=== PATIENT | female | born 1955 | race Caucasian/White ===

== ENCOUNTER 2020-06-05 09:09 | Outpatient (REF) | payer MEDICARE, SELFPAY ==
[2020-06-05 12:37] LABS: Alanine Aminotransferase 29 U/L (0-31); Albumin Level 4.4 g/dL (3.5-5.0); Alkaline Phosphatase 75 U/L (39-117); Anion Gap 14 (12-20); Aspartate Amino Transferase 20 U/L (5-31); Bilirubin Direct 0.4 mg/dL (0.0-0.5); Blood Urea Nitrogen 17 mg/dL (9-16); Calcium 9.5 mg/dL (8.4-10.2); Carbon Dioxide 26 mmol/L (22-29); Chloride 105 mmol/L (96-108); Cholesterol 186 mg/dL; Estimated Glomerular Filt Rate > 60; Glucose Fasting 96 mg/dL (60-99); HDL Cholesterol 46 mg/dL; LDL Cholesterol Calculated 111 mg/dl; Potassium 4.4 mmol/l (3.3-5.1); Sodium 141 mmol/L (135-145); Total Protein 7.2 g/dL (6.5-8.0); Triglycerides 147 mg/dL
== END 2020-06-05 09:10 | disposition home or self-care (01) ==
LOC: HO.HMGCLDS 09:09
PROVIDERS: PCP Internal Medicine; Visit Provider Internal Medicine
DX: E78.9 Disorder of lipoprotein metabolism, unspecified (principal); E04.1 Nontoxic single thyroid nodule
CPT/HCPCS: 36415; 80048; 80061; 80076; 84443

== ENCOUNTER 2021-03-19 08:41 | Outpatient (REF) | payer MEDICARE, SELFPAY ==
--- NOTE | ~2021-03-19 | XR_ITS ---
EXAMINATION: XR LUMBOSACRAL SPINE CLINICAL INFORMATION: Low back pain COMPARISON: Previous lumbar spine x-ray March 2016 TECHNIQUE: Three views of the lumbosacral spine. FINDINGS: There is curvature of the lower lumbar spine to the left. Bone alignment is otherwise normal. There is multilevel degenerative disc disease greatest at L3-L4, L4-L5 and L5-S1. There is lower lumbar spine facet arthritis. There is evidence of atherosclerotic disease. XR/XR lumbar spine 2-3V IMPRESSION: Scoliosis and multilevel degenerative changes. Findings are similar to March 2016 exam.
[2021-03-19 11:25] LABS: MANUAL DIFF FLAG NO
[2021-03-19 11:31] LABS: Basophils Absolute Auto 0.1 X10*3/uL (0.0-0.2); Basophils Percent Auto 0.9 % (0-2); Eosinophils Absolute Auto 0.3 X10*3/uL (0.0-0.4); Eosinophils Percent Auto 3.4 % (0-4); Hematocrit 40.7 % (37-47); Hemoglobin 13.2 g/dl (12.0-16.0); Imm Gran Abs Auto 0.02 X10*3/uL (0.00-0.03); Imm Gran Pct Auto 0.3 % (0.0-0.4); Lymphocytes Absolute Auto 2.7 X10*3/uL (1.2-4.9); Lymphocytes Percent Auto 33.8 % (20-40); Mean Corpuscular HGB Conc 32.4 g/dl (31.0-35.0); Mean Corpuscular Hemoglobin 30.3 pg (27.0-33.0); Mean Corpuscular Volume 93.3 fL (80-98); Monocytes Absolute Auto 0.7 X10*3/uL (0.1-1.2); Monocytes Percent Auto 8.7 % (2-11); Neutrophils Absolute Auto 4.2 X10*3/uL (2.0-8.3); Neutrophils Percent Auto 52.9 % (45-73); Platelet Count 341 X10*3/uL (160-400); Red Blood Count 4.36 X10*6/uL (4.20-5.50); Red Cell Distribution Width 12.8 % (11.0-16.0); White Blood Count 7.9 X10*3/uL (4.8-10.8)
[2021-03-19 11:46] LABS: Alanine Aminotransferase 26 U/L (0-31); Albumin Level 4.3 g/dL (3.5-5.0); Alkaline Phosphatase 72 U/L (39-117); Anion Gap 14 (12-20); Aspartate Amino Transferase 21 U/L (5-31); Bilirubin Total 1.2 mg/dL (0.0-1.0); Blood Urea Nitrogen 15 mg/dL (9-16); Calcium 9.9 mg/dL (8.4-10.2); Carbon Dioxide 25 mmol/L (22-29); Chloride 106 mmol/L (96-108); Cholesterol 185 mg/dL; Estimated Glomerular Filt Rate > 60; Glucose Fasting 91 mg/dL (60-99); HDL Cholesterol 43 mg/dL; LDL Cholesterol Calculated 116 mg/dl; Potassium 4.1 mmol/L (3.3-5.1); Sodium 141 mmol/L (135-145); Total Protein 7.1 g/dL (6.5-8.0); Triglycerides 130 mg/dL
[2021-03-19 12:10] LABS: TSH reflex Free T4 1.53 uIU/mL (0.32-4.0)
== END 2021-03-19 08:42 | disposition home or self-care (01) ==
LOC: HO.HMGCX 08:41
PROVIDERS: PCP Internal Medicine; Visit Provider Internal Medicine
DX: M54.50 Low back pain, unspecified (principal); E04.1 Nontoxic single thyroid nodule; E78.9 Disorder of lipoprotein metabolism, unspecified
CPT/HCPCS: 36415; 72100; 80053; 80061; 84443; 85025

== ENCOUNTER 2021-10-01 09:07 | Outpatient (REF) | payer MEDICARE, SELFPAY ==
[2021-10-01 11:42] LABS: Alanine Aminotransferase 28 U/L (0-31); Albumin Level 4.4 g/dL (3.5-5.0); Alkaline Phosphatase 68 U/L (39-117); Anion Gap 12 (12-20); Aspartate Amino Transferase 23 U/L (5-31); Bilirubin Total 1.2 mg/dL (0.0-1.0); Blood Urea Nitrogen 21 mg/dL (9-16); Calcium 10.4 mg/dL (8.4-10.2); Carbon Dioxide 25 mmol/L (22-29); Chloride 106 mmol/L (96-108); Cholesterol 191 mg/dL; Estimated Glomerular Filt Rate > 60; Glucose Fasting 107 mg/dL (60-99); HDL Cholesterol 42 mg/dL; LDL Cholesterol Calculated 130 mg/dl; Potassium 4.3 mmol/L (3.3-5.1); Sodium 139 mmol/L (135-145); Total Protein 7.4 g/dL (6.5-8.0); Triglycerides 98 mg/dL
== END 2021-10-01 09:08 | disposition home or self-care (01) ==
LOC: HO.HMGCLDS 09:07
PROVIDERS: PCP Internal Medicine; Visit Provider Internal Medicine
DX: E78.9 Disorder of lipoprotein metabolism, unspecified (principal)
CPT/HCPCS: 36415; 80053; 80061

== ENCOUNTER → 2021-12-06 08:08 | Outpatient (REF) | payer MEDICARE, SELFPAY ==
--- NOTE | 2021-12-06 08:10 | CA_ITS ---
Transthoracic Echocardiogram Patient (Last, First, Middle): Penny Iraheta F Gender: Female Date of : 1955 Age: 66 Procedure Date: 12/06/2021 Procedure Type: Transthoracic Echocardiogram Location: OP Height: 160.02 cm Weight: 87.09 kg BSA: 1.90 m2 Heart Rate: bpm Gear Milling Machine Set Up Operator: TO/VH Referring MD: Maisha Delcid MD Project Financial Analyst: Adam Castro MD Symptoms: R06.02 - Shortness of breath Study Quality: Fair/Contrast ECG Rhythm: Sinus Conclusions: - 1. Normal LV systolic function with grade 1 diastolic dysfunction 2. Normal cardiac valvular Doppler 3. Normal RV systolic pressure 4. No gross pericardial effusion Findings Procedure Information Contrast agent, definity, is being given per protocol without apparent complications. Left Ventricle Normal left ventricular size, thickness, and systolic function. The visually estimated ejection fraction is between 55-60%. Spectral Doppler is indicative of an impaired relaxation filling pattern. E/E prime ratio is <8, consistent with normal filling pressures. Evidence suggests grade I (mild) diastolic dysfunction. Right Ventricle The right ventricle was not well visualized. There is normal right ventricular systolic function. Atria The left atrium is normal in size. There is no evidence of interatrial shunt. The right atrium is normal in size. Aortic Valve The aortic valve structure and function is likely normal. There is no aortic valve stenosis. There is no aortic valve regurgitation. Mitral Valve Normal mitral valve structure and function. There is trace mitral valve regurgitation. There is no mitral valve stenosis. Pulmonic Valve The pulmonic valve was not well visualized. Tricuspid Valve Likely normal tricuspid valve structure and function. There is trace tricuspid valve regurgitation. The right ventricular systolic pressure is normal. Normal right atrial pressure. There is no evidence of pulmonary hypertension. Great Vessels All visible segments of the aorta are normal in size. The pulmonary artery was not well visualized. Venous The inferior vena cava is normal in size and collapses greater than 50% with inspiration. Pericardium/Pleural There is no evidence of pericardial effusion. Prior Study Comparison No prior study available for comparison. Measurements 2D Linear Measurements IVSd: 1.18 0.6-0.9/0.6-1.0 cm LVIDd: 4.69 3.9-5.3/4.2-5.9 cm LVIDd Index: 2.47 2.4-3.2/2.2-3.1 cm/m2 LVIDs: 3.02 2.0-3.6 cm LVPWd: 0.99 0.7-1.1 cm LA Diam: 3.50 2.7-3.8/3.0-4.0 cm LAIDs Index: 1.84 1.5-2.3 cm/m2 LV Mass: 228.60 67-162/88-224 g LV Mass Index: 120.32 43-95/49-115 g/m2 LVOT Diam: 2.30 3.0+(-)1.3 cm 2D Systolic Function EF 4C: 52.00 >55% EF 2C: 57.50 >55% EF BiP: 55.40 >55% Mitral Valve MV Pk E: 0.80 MV PK A: 0.70 MV Decel Time: 123.00 E/A: 1.10 E'Lateral: 10.90 E'Medial: 5.77 E/E' Med: 13.90 E/E' Lat: 7.30 PHT: 36.00 MVA PHT: 6.11 Decel Oliver: 6.49 Aortic Valve AoV Pk Jairo: 1.21 AoV Mn Jairo: 0.85 AoV VTI: 0.28 AoV Pk Grad: 6.00 Aov Mn Grad: 3.00 KAM Cont.VTI: 2.57 LVOT LVOT Pk Jairo: 0.75 LVOT Mn Jairo: 0.54 LVOT VTI: 0.17 LVOT Pk Grad: 2.00 LVOT Mn Grad: 1.00 LVOT Diam: 2.30 LVOT Area: 4.15 Diastolic Function MV Pk E: 0.80 MV Pk A: 0.70 E/A: 1.10 E'Medial: 5.77 E/E' Med: 13.90 E' Laterial: 10.90 E/E' Lat: 7.30 Right Ventricle TAPSE (mm): 25.70 TVS' Jairo: 12.00 Tricuspid Valve TR Pk Jairo: 2.54 TR Pk Grad: 26.00 RA Press: 3.00 RVSP: 29.00 Great Vessels Aorta Sinus of Valsalva: 3.85 2.0-3.[address] [place]: 2.64 1.7-3.4 cm Ao Asc: 3.50 2.1-3.4 cm Updated in Other Vendor System with Status of Final Adam Castro MD electronically signed on 12/06/2021 12:18:11 PM with status of Final
--- NOTE | 2021-12-06 08:13 | ECG_ITS ---
Test Reason : sob Blood Pressure : / mmHG Vent. Rate : 072 BPM Atrial Rate : 072 BPM P-R Int : 176 ms QRS Dur : 084 ms QT Int : 376 ms P-R-T Axes : 011 -08 008 degrees QTc Int : 411 ms Normal sinus rhythm Normal ECG No previous ECGs available Referred By: Maisha Delcid Electronically Signed By:Avila Hickey
== END ==
LOC: HO.CARD 08:08
PROVIDERS: PCP Internal Medicine; Visit Provider Internal Medicine
DX: R06.02 Shortness of breath (principal); R00.2 Palpitations; E78.9 Disorder of lipoprotein metabolism, unspecified
CPT/HCPCS: 93005; 93306; Q9957

== ENCOUNTER 2021-12-09 07:41 | Outpatient (REF) | payer MEDICARE, SELFPAY | END 2021-12-09 07:42 | disposition home or self-care (01) | LOC: HO.RESP 07:41 | PROVIDERS: Visit Provider Internal Medicine | DX: R06.02 Shortness of breath (principal) | CPT/HCPCS: 94060; 94727; 94729 ==

== ENCOUNTER 2021-12-09 12:20 | Outpatient (REF) | payer MEDICARE, SELFPAY ==
--- NOTE | 2021-12-09 13:02 | PFT_ITS ---
INDICATION: Shortness of breath. SPIROMETRY: FEV1 to FVC of 89% with an FEV1 of 2.21 L, which is 98% predicted, an FVC of 2.48 L, which is 84% predicted. No significant response to bronchodilators noted. LUNG VOLUMES: Total lung capacity 81% predicted with an expiratory reserve volume of 18% predicted. DIFFUSION CAPACITY: DLCO 62% predicted. COMPARISONS: None. INTERPRETATION: No obstructive nor restrictive ventilatory defects identified. No significant response to bronchodilators noted. Normal maximum voluntary ventilation. Lung volumes demonstrate a low normal total lung capacity and a significantly decreased expiratory reserve volume secondary to elevated BMI. Cannot rule out occult interstitial lung conditions. In addition to that, the patient does have a mild diffusion impairment that does not correct to normal when correcting for the alveolar volume. Therefore, intrinsic lung condition should be considered. Clinical correlation warranted. MD KOLE Mooney/NEGRO / [id number]
== END 2021-12-09 12:21 | disposition home or self-care (01) ==
LOC: HO.RESP 12:20
PROVIDERS: PCP Internal Medicine; Visit Provider Internal Medicine
DX: R06.02 Shortness of breath (principal)
CPT/HCPCS: 94060; 94727; 94729

== ENCOUNTER 2022-01-06 09:44 | Outpatient (REF) | payer MEDICARE, SELFPAY ==
--- NOTE | ~2022-01-06 | XR_ITS ---
EXAMINATION: XR CHEST CLINICAL INFORMATION: R06.09 - Other forms of dyspnea COMPARISON: None TECHNIQUE: 2 views of the chest were obtained. FINDINGS: Lungs are clear. There is no hyperinflation, groundglass opacity, interstitial thickening, or effusion. The costophrenic sulci are clear. The heart is normal in size. Vascularity normal. The hilar and mediastinal contours normal. There are mild multilevel degenerative changes thoracic spine and mild dextrocurvature. XR/XR chest 2V IMPRESSION: Unremarkable examination.
== END 2022-01-06 09:45 | disposition home or self-care (01) ==
LOC: HO.XRAY 09:44
PROVIDERS: PCP Internal Medicine; Visit Provider Internal Medicine
DX: R06.09 Other forms of dyspnea (principal)
CPT/HCPCS: 71046; 99202

== ENCOUNTER 2022-10-05 09:33 | Outpatient (REF) | payer MEDICARE, SELFPAY ==
[2022-10-05 12:18] LABS: Estimated Average Glucose 108 mg/dL; Hemoglobin A1c % 5.4 %
[2022-10-05 12:53] LABS: Alanine Aminotransferase 24 U/L (0-31); Albumin Level 4.3 g/dL (3.5-5.0); Alkaline Phosphatase 62 U/L (39-117); Anion Gap 12 (12-20); Aspartate Amino Transferase 21 U/L (5-31); Bilirubin Total 1.4 mg/dL (0.0-1.0); Blood Urea Nitrogen 15 mg/dL (9-16); Calcium 9.5 mg/dL (8.4-10.2); Carbon Dioxide 26 mmol/L (22-29); Chloride 108 mmol/L (96-108); Estimated Glomerular Filt Rate > 60; Glucose Fasting 98 mg/dL (60-99); Potassium 4.8 mmol/L (3.3-5.1); Sodium 141 mmol/L (135-145)
[2022-10-05 13:22] LABS: TSH reflex Free T4 1.13 uIU/mL (0.32-4.0)
[2022-10-07 08:39] LABS: LDL Cholesterol Direct 103 mg/dL (<100)
== END 2022-10-05 09:34 | disposition home or self-care (01) ==
LOC: HO.HMGCLDS 09:33
PROVIDERS: PCP Internal Medicine; Visit Provider Internal Medicine
DX: E04.1 Nontoxic single thyroid nodule (principal); E83.52 Hypercalcemia; E66.09 Other obesity due to excess calories; E78.9 Disorder of lipoprotein metabolism, unspecified; R06.02 Shortness of breath; R73.01 Impaired fasting glucose
CPT/HCPCS: 36415; 80053; 83036; 83721; 84443

== ENCOUNTER 2023-04-07 09:20 | Outpatient (REF) | payer MEDICARE, SELFPAY ==
[2023-04-07 11:26] LABS: MANUAL DIFF FLAG NO
[2023-04-07 11:43] LABS: Basophils Absolute Auto 0.1 X10*3/uL (0.0-0.2); Basophils Percent Auto 1.4 % (0-2); Eosinophils Absolute Auto 0.2 X10*3/uL (0.0-0.4); Eosinophils Percent Auto 2.8 % (0-4); Hematocrit 39.7 % (37.0-47.0); Hemoglobin 13.2 g/dl (12.0-16.0); Imm Gran Abs Auto 0.02 X10*3/uL (0.00-0.03); Imm Gran Pct Auto 0.3 % (0.0-0.4); Lymphocytes Absolute Auto 2.1 X10*3/uL (1.2-4.9); Mean Corpuscular HGB Conc 33.2 g/dl (31.0-35.0); Mean Corpuscular Hemoglobin 31.1 pg (27.0-33.0); Mean Corpuscular Volume 93.4 fL (80.0-98.0); Mean Platelet Volume 9.9 fL (9.4-12.3); Monocytes Absolute Auto 0.5 X10*3/uL (0.1-1.2); Monocytes Percent Auto 8.2 % (2-11); Neutrophils Absolute Auto 3.4 x10*3/uL (2.0-8.3); Neutrophils Percent Auto 54.3 % (45-73); Platelet Count 332 X10*3/uL (160-400); Red Blood Count 4.25 X10*6/uL (4.20-5.50); Red Cell Distribution Width 13.2 % (11.0-16.0); White Blood Count 6.3 X10*3/uL (4.8-10.8)
[2023-04-07 12:07] LABS: Estimated Average Glucose 111 mg/dL; Hemoglobin A1c % 5.5 % (<6.0)
[2023-04-07 12:19] LABS: Alanine Aminotransferase 22 U/L (0-31); Albumin Level 4.3 g/dL (3.5-5.0); Alkaline Phosphatase 57 U/L (39-117); Anion Gap 10 (12-20); Aspartate Amino Transferase 24 U/L (5-31); Bilirubin Total 1.3 mg/dL (0.0-1.0); Blood Urea Nitrogen 18 mg/dL (9-16); Calcium 9.2 mg/dL (8.4-10.2); Carbon Dioxide 27 mmol/L (22-29); Chloride 107 mmol/L (96-108); Cholesterol 163 mg/dL (<200); Estimated Glomerular Filt Rate > 60; Glucose Fasting 101 mg/dL (60-99); HDL Cholesterol 49 mg/dL (>40); LDL Cholesterol Calculated 97 mg/dL (<100); Potassium 4.1 mmol/L (3.3-5.1); Sodium 140 mmol/L (135-145); Total Protein 7.2 g/dL (6.5-8.0); Triglycerides 87 mg/dL (<150)
== END 2023-04-07 09:21 | disposition home or self-care (01) ==
LOC: HO.HMGCLDS 09:20
PROVIDERS: PCP Internal Medicine; Visit Provider Internal Medicine
DX: R73.01 Impaired fasting glucose (principal); E78.9 Disorder of lipoprotein metabolism, unspecified
CPT/HCPCS: 36415; 80053; 80061; 83036; 85025

== ENCOUNTER 2023-10-11 08:53 | Outpatient (AMB) | payer MEDICARE, SELFPAY ==
[2023-10-11 08:54] VITALS: BP 138/92; PULSE 74; O2SAT 94; BMI 32.4
--- NOTE | 2023-10-11 08:54 | A.OFFVIS_ITS ---
Intake Vital Signs 10/11/23 08:54 Height 5 ft 4 in Weight 188 lb 8 oz BMI 32.4 BP 138/92 H Blood Pressure Location Lt brachial Position Sitting Pulse 74 Pulse Source Pulse Oximeter Pulse Oximetry (%) 94 Oxygen Delivery Method Room Air Intake Visit Reasons: SWV Allergies nystatin Allergy (Severe, Verified 10/11/23 08:57) rash Medication List - Last Reconciled 10/11/23 by Maisha Delcid MD atorvastatin 40 mg PO DAILY 90 days Do you need a note to return to daycare/school/sports/work: No HPI SWV HPI Details Patient is 68-year-old female came in today for Medicare wellness visit and regular follow-up Blood pressure is elevated today at 138/92, I would recommend that she start monitoring blood pressure at home Patient also have impaired fasting sugar, lab order placed Patient is exercising and trying to lose weight, BMI is elevated HPI Comments History of Present Illness Details AWV Medical/social history reviewed Past medical history reviewed [place] of care / care team list updated Surgical/ hospitalization history reviewed Current medications including OTC and supplements reviewed Family history reviewed Tobacco controlled form updated Alcohol use form updated Illicit drug use in social history reviewed Current diagnosis of depression ?screening updated Appropriate PHQ 2/PHQ-9 completed . Vital signs reviewed Alcohol tobacco drug use reviewed and discussed . MMSE completed . ? Fall risk: ?Assessed Fall history: ?None Have you had any falls with injury in the past year?? No Have you had 2 or more falls in the past year?? No Fall risk assessment completed Home safety discussed with the patient Functional ability assessed and discussed and documented Activities of daily living reviewed and appropriate actions taken . HRA filled out by the patient and reviewed by provider and scanned . Appropriate written screening schedule established . Any health advise needed provided . Advance care planning discussed with the patient , necessary paperwork filled Examination IPPE/AWE: Balance intact Romberg intact Tandem walk Failed walk-in turn intact rise from sit to stand intact . ?Hearing ?whisper test pass . Medication list reviewed, patient is stable on medications All other providers patient is seeing discussed and noted . [facility] Medical History Dyspnea on exertion Thyroid nodule History of breast cancer Family History Father No problems noted. Mother Breast cancer Sister No problems noted. Son No problems noted. Son No problems noted. Sister Ford's palsy Brother Poor circulation Brother No problems noted. Brother No problems noted. Brother No problems noted. Brother No problems noted. Brother No problems noted. Sister No problems noted. Sister No problems noted. Sister No problems noted. Social History Housing: House Patient Tobacco Use Status: Never used Tobacco e-Cigarette/Vaping Use: Never Used Second Hand Smoke Exposure: No service: No Current occupational status: retired Cognitive needs: No Hearing needs: No Vision needs: No Questionnaire Medicare Wellness Checkup What [age]?: 65-68 What gender do you identify with?: female During the past 4 weeks, how much have you been bothered by emotional problems such as feeling anxious, depressed, irritable, sad or downhearted, and blue?: slightly During the past 4 weeks, has your physical & emotional health limited your social activities with family, friends, neighbors, or groups?: not at all During the past 4 weeks, how much bodily pain have you generally had?: mild pain During the past 4 weeks, was someone available to help you if you needed & wanted help?: yes, as much as I wanted During the past 4 weeks, what was the hardest physical activity you could do for at least 2 minutes?: heavy Can you get to places out of walking distance without help? (For eg., can you travel alone on buses, taxis or drive your car?): Yes Can you go shopping for groceries or clothes without someone's help?: Yes Can you prepare your own meals?: Yes Can you do your housework without help?: Yes Because of any health problems, do you need the help of another person with your personal care needs such as eating, bathing, dressing or getting around the house?: No Can you handle your own money without help?: Yes During the past 4 weeks, how would you rate your health in general?: excellent During the past 4 weeks how have things been going for you?: pretty well Are you having difficulties driving your car?: no Do you always fasten your seat belt when you are in a car?: yes, usually During past 4 weeks, have you been bothered by the following: never: Falling or dizzy when standing up, Sexual problems?, Trouble eating well?, Teeth or denture problems? and Problems using the telephone? and sometimes: Tiredness or fatigue? Have you fallen 2 or more times in the past year?: No Are you afraid of falling?: No Are you a smoker?: no During the past 4 weeks, how many drinks of wine, beer, or other alcoholic beverages did you have?: 6-9 drinks per week Do you exercise for about 20 minutes 3 or more times a week?: yes, most of the time Have you been given information to help with the following?: no: Hazards in your house that might hurt you? and no: Keeping track of your medications? How often do you have trouble taking medicines the way you have been told to take them?: I always take medicine as prescribed How confident are you that you can control & manage most of your health problems?: very confident What is your race?: White Mini Mental State Exam (MMSE) Orientation What is the (year) (season) (date) (day) (month)?: year, season, date, day and month Where are we (state) (county) (town or city) (hospital) (floor)?: state, county, town or city, hospital/clinic and floor Score Score: 10 Activity of Daily Living Bathing - sponge bath, tub bath or shower: receives no assistance (gets in/out by self, if usual bathing means Dressing - getting clothes from closets & drawers, including inner/outer garments & fasteners.: gets clothes & gets completely dressed without help Toileting - going to the 'toilet room' for urine/bowel elimination & cleaning self/arranging clothes: goes to toilet room, cleans self, arranges clothes without help Transfer: moves in & out of bed and chair without help (may use support object) Continence: controls urination/bowel movements completely by self Feeding: feeds self without help Total Score: 0 Information obtained from: patient Using telephone: independent Traveling: independent Shopping: independent Preparing meals: independent Housework: independent Taking medicine: independent Managing money: independent PHQ-9 Over the last 2 weeks, how often have you been bothered by any of the following problems? 1. Little interest or pleasure in doing things: several days 2. Feeling down, depressed, or hopeless: several days 3. Trouble falling or staying asleep, or sleeping too much: more than half the days 4. Feeling tired or having little energy: several days 5. Poor appetite or overeating: several days 6. Feeling bad about yourself - or that you are a failure or have let yourself or your family down: not at all 7. Trouble concentrating on things, such as reading the newspaper or watching television: not at all 8. Moving or speaking so slowly that other people could have noticed. Or the opposite - being so fidgety or restless that you have been moving around a lot more than usual: not at all 9. Thoughts that you would be better off or of hurting yourself in some way: not at all Total score: 6 Depression Screening Interpretation: Negative Depression Screening Done: Yes 91649 - PHQ-9 Billing: Yes Source: Developed by Drs. Terrence Willis, Phoebe Hernández, Puma Kumar and colleagues, with an educational harvinder from [employer]. Review of Systems Const Denies chills and Denies fever(s) ENT Denies epistaxis and Denies nasal discharge Card Denies chest pain Resp Denies chest congestion, Denies cough and Denies hemoptysis GI Denies diarrhea and Denies nausea Skin/Breast Denies rash Neuro Reports no additional complaints Psych Reports no additional complaints Endo Reports no additional complaints Physical Exam Vital Signs: Last Vital Signs Pulse 74 10/11/23 08:54 BP 138/92 H 10/11/23 08:54 Pulse Ox 94 10/11/23 08:54 Oxygen Delivery Method Room Air 10/11/23 08:54 BMI result Body Mass Index 32.4 Const General: cooperative, comfortable and no acute distress Orientation/consciousness: patient oriented x3 HEENT Head: Yes normocephalic Eyes General: appearance normal, both eyes and all related structures Neck Other: Supple Neck: Yes supple Resp Effort & Inspection: normal respiratory effort, no cough and no stridor Cardio Rhythm: regular rhythm Heart sounds: S1 normal heart sound present and S2 normal heart sound present Skin General skin exam: turgor normal Neuro Other: Motor sensory intact General: patient oriented x3, tone normal and moves all extremities Extrem Other: No lower extremity swelling. Right lower extremity: no edema Left lower extremity: no edema Psych Other: Normal effect, speech clear Assessment & Plan Assessment & Plan (1) Medicare annual wellness visit, subsequent: Code(s): Z00.00 - Encounter for general adult medical examination without abnormal findings (2) Lipid disorder: Code(s): E78.9 - Disorder of lipoprotein metabolism, unspecified (3) Obesity due to excess calories: Code(s): E66.09 - Other obesity due to excess calories Qualifiers: Body mass index: BMI 32.0-32.9 Obesity classification: adult class 1 (BMI 30 - 34.9) Serious obesity comorbidity presence: with serious comorbidity Qualified Code(s): E66.09 - Other obesity due to excess calories; Z68.32 - Body mass index [BMI] 32.0-32.9, adult (4) Impaired fasting blood sugar: Code(s): R73.01 - Impaired fasting glucose (5) Diastolic blood pressure 90 mm Hg or higher: Code(s): R03.0 - Elevated blood-pressure reading, without diagnosis of hypertension Plan Patient is 68-year-old female came in today for Medicare wellness visit and regular follow-up Blood pressure is elevated today at 138/92, I would recommend that she start monitoring blood pressure at home Patient also have impaired fasting sugar, lab order placed Patient is exercising and trying to lose weight, BMI is elevated Continue statin for lipid disorder Orders: Orders Complete Blood Count Auto Diff Today E66.09 - Other obesity due to excess calories, E78.9 - Disorder of lipoprotein metabolism, unspecified, R73.01 - Impaired fasting glucose, Z68.32 - Body mass index [BMI] 32.0-32.9, adult Comprehensive [place]. Panel Fast Today E66.09 - Other obesity due to excess calories, E78.9 - Disorder of lipoprotein metabolism, unspecified, R73.01 - Impaired fasting glucose, Z68.32 - Body mass index [BMI] 32.0-32.9, adult Lipid Panel Today E66.09 - Other obesity due to excess calories, E78.9 - Disorder of lipoprotein metabolism, unspecified, R73.01 - Impaired fasting glucose, Z68.32 - Body mass index [BMI] 32.0-32.9, adult Hemoglobin A1c Today E66.09 - Other obesity due to excess calories, E78.9 - Disorder of lipoprotein metabolism, unspecified, R73.01 - Impaired fasting glucose, Z68.32 - Body mass index [BMI] 32.0-32.9, adult Quality Reporting (2019) Depression/Bipolar (159/160/161/177) PHQ-9: Total score: 6 Coding Level of Care Code Medicare Subsequent (G0439) Est Pt Level 3 (29206) Diagnoses Medicare annual wellness visit, subsequent Z00.00 Lipid disorder E78.9 Class 1 obesity due to excess calories with serious comorbidity and body mass index (BMI) of 32.0 to 32.9 in adult E66.09; Z68.32 Body mass index: BMI 32.0-32.9 Obesity classification: adult class 1 (BMI 30 - 34.9) Serious obesity comorbidity presence: with serious comorbidity Impaired fasting blood sugar R73.01 Diastolic blood pressure 90 mm Hg or higher R03.0 CPT Codes Advance Care Planning - Time spent: 1-15 minutes, on File ([id number]) Advance Care Planning Advance Care Planning discussion: Completed/Scanned Forms completed: MOLST Time spent: 1-15 minutes, on File
== END 2023-10-11 09:25 | disposition home or self-care (01) ==
PROVIDERS: Visit Provider Internal Medicine
DX: Z00.00 Encounter for general adult medical examination without abnormal findings (principal); E78.9 Disorder of lipoprotein metabolism, unspecified; E66.09 Other obesity due to excess calories; Z68.32 Body mass index [BMI] 32.0-32.9, adult; R73.01 Impaired fasting glucose; R03.0 Elevated blood-pressure reading, without diagnosis of hypertension
CPT/HCPCS: 1123F; 99213; G0439

== ENCOUNTER 2023-10-11 09:28 | Outpatient (REF) | payer MEDICARE, SELFPAY ==
[2023-10-11 10:11] LABS: MANUAL DIFF FLAG NO
[2023-10-11 10:24] LABS: Basophils Absolute Auto 0.1 X10*3/uL (0.0-0.2); Basophils Percent Auto 1.6 % (0-2); Eosinophils Absolute Auto 0.2 X10*3/uL (0.0-0.4); Hematocrit 40.5 % (37.0-47.0); Hemoglobin 13.1 g/dl (12.0-16.0); Imm Gran Abs Auto 0.03 X10*3/uL (0.00-0.03); Imm Gran Pct Auto 0.5 % (0.0-0.4); Lymphocytes Percent Auto 30.9 % (20-40); Mean Corpuscular HGB Conc 32.3 g/dl (31.0-35.0); Mean Corpuscular Hemoglobin 30.5 pg (27.0-33.0); Mean Corpuscular Volume 94.2 fL (80.0-98.0); Mean Platelet Volume 10.1 fL (9.4-12.3); Monocytes Absolute Auto 0.6 X10*3/uL (0.1-1.2); Monocytes Percent Auto 8.9 % (2-11); Neutrophils Absolute Auto 3.6 x10*3/uL (2.0-8.3); Neutrophils Percent Auto 55.1 % (45-73); Platelet Count 301 X10*3/uL (160-400); Red Cell Distribution Width 13.2 % (11.0-16.0); White Blood Count 6.4 X10*3/uL (4.8-10.8)
[2023-10-11 10:57] LABS: Estimated Average Glucose 117 mg/dL; Hemoglobin A1c % 5.7 % (<6.0)
[2023-10-11 11:30] LABS: Alanine Aminotransferase 24 U/L (0-31); Albumin Level 4.2 g/dL (3.5-5.0); Alkaline Phosphatase 59 U/L (39-117); Anion Gap 14 (12-20); Aspartate Amino Transferase 21 U/L (5-31); Bilirubin Total 1.3 mg/dL (0.0-1.0); Blood Urea Nitrogen 17 mg/dL (9-16); Calcium 9.3 mg/dL (8.4-10.2); Carbon Dioxide 25 mmol/L (22-29); Chloride 108 mmol/L (96-108); Cholesterol 173 mg/dL (<200); Estimated Glomerular Filt Rate > 60; Glucose Fasting 87 mg/dL (60-99); HDL Cholesterol 56 mg/dL (>40); LDL Cholesterol Calculated 98 mg/dL (<100); Potassium 4.1 mmol/L (3.3-5.1); Sodium 143 mmol/L (135-145); Triglycerides 96 mg/dL (<150)
== END 2023-10-11 09:29 | disposition home or self-care (01) ==
LOC: HO.HMGCLDS 09:28
PROVIDERS: PCP Internal Medicine; Visit Provider Internal Medicine
DX: E78.9 Disorder of lipoprotein metabolism, unspecified (principal); R73.01 Impaired fasting glucose; E66.09 Other obesity due to excess calories; Z68.32 Body mass index [BMI] 32.0-32.9, adult
CPT/HCPCS: 36415; 80053; 80061; 83036; 85025

== ENCOUNTER 2024-04-09 08:09 | Outpatient (AMB) | payer MEDICARE, SELFPAY ==
[2024-04-09 08:17] VITALS: BP 128/80; PULSE 75; O2SAT 98; BMI 33.3
--- NOTE | 2024-04-09 08:17 | A.OFFPC_ITS ---
Vital Signs 04/09/24 08:17 Height 5 ft 4 in Weight 194 lb BMI 33.3 BP 128/80 Blood Pressure Location Lt brachial Position Sitting Pulse 75 Pulse Source Pulse Oximeter Pulse Oximetry (%) 98 Oxygen Delivery Method Room Air Intake Visit Reasons: 6 mon f/u Allergies nystatin Allergy (Severe, Verified 04/09/24 08:20) rash Medication List - Last Reconciled 04/09/24 by Maisha Delcid MD atorvastatin 40 mg PO DAILY 90 days Tobacco use date assessed: 04/09/24 Fall risk assessment: No Falls in past year Last assessed Fall Risk: 04/09/24 Dental Screening Dental Screen Date: 04/09/24 Did you have a dental visit in the last 12 months?: Yes Did you have a dental problem in the last 6 months where you did not have access to dental care?: No Was dental information given to patient?: Patient has dentist HPI 6 mon f/u HPI Details Patient is a 69-year-old female came in today for her regular follow-up appointment Blood pressure is well-controlled today She is taking atorvastatin 40 mg for lipid control Due for labs, patient is fasting and have it done today Still struggling with weight, trying to lose it by exercising and dieting She offers no other complaints today Follow-up six-month [facility] Medical History Dyspnea on exertion Thyroid nodule History of breast cancer Family History Father No problems noted. Mother Breast cancer Sister No problems noted. Son No problems noted. Son No problems noted. Sister Ford's palsy Brother Poor circulation Brother No problems noted. Brother No problems noted. Brother No problems noted. Brother No problems noted. Brother No problems noted. Sister No problems noted. Sister No problems noted. Sister No problems noted. Social History Housing: House Patient Tobacco Use Status: Never used Tobacco e-Cigarette/Vaping Use: Never Used Second Hand Smoke Exposure: No service: No Current occupational status: retired Cognitive needs: No Hearing needs: No Vision needs: No Questionnaire PHQ-9 Over the last 2 weeks, how often have you been bothered by any of the following problems? 1. Little interest or pleasure in doing things: not at all 2. Feeling down, depressed, or hopeless: not at all 3. Trouble falling or staying asleep, or sleeping too much: several days 4. Feeling tired or having little energy: not at all 5. Poor appetite or overeating: not at all 6. Feeling bad about yourself - or that you are a failure or have let yourself or your family down: not at all 7. Trouble concentrating on things, such as reading the newspaper or watching television: not at all 8. Moving or speaking so slowly that other people could have noticed. Or the opposite - being so fidgety or restless that you have been moving around a lot more than usual: not at all 9. Thoughts that you would be better off or of hurting yourself in some way: not at all Total score: 1 Depression Screening Interpretation: Negative Depression Screening Done: Yes 50532 - PHQ-9 Billing: Yes Source: Developed by Drs. Terrence Willis, Phoebe Hernández, Puma Kumar and colleagues, with an educational harvinder from [employer]. Thrive Questionnaire Date Thrive assessed: 04/09/24 I am a: Patient What is your living situation today?: I have a steady place to live Within the past 12 months, did the food you bought not last and you didn't have the money to get more?: Never true Within the past 12 months, did you worry whether your food would run out before you got money to buy more?: Never true Do you have trouble paying for medicines?: No Do you have trouble getting transportation to medical appointments?: No Do you have trouble paying your heating and electricity bill?: No Do you have trouble taking care of your child, family member or friend?: No Do you have trouble with day-to-day activities such as bathing, preparing meals, shopping, managing finances, etc.?: No Are you currently unemployed and looking for a job?: No Are you interested in more education?: No Please select the resources that you would like help with: None Currently or been in a relationship where the following occur: No concerns reported THRIVE Score: 0 AUDIT C Alcohol Use Questionnaire (AUDIT-C) 1. How often do you have a drink containing alcohol?: 2-4 times a month 2. How many drinks containing alcohol do you have on a typical day when you are drinking?: 1 or 2 3. How often do you have six or more drinks on one occasion?: Never Total Score: 2 Score Reviewed/Action Taken: Yes PATRICE-7 AMB Questionnaire PATRICE-7 Date PATRICE - 7 assessed: 04/09/24 Feeling nervous, anxious, or on edge: 0 = Not at all Not being able to stop or control worryin = Not at all Worrying too much about different things: 0 = Not at all Trouble relaxin = Not at all Being so restless that it is hard to sit still: 0 = Not at all Becoming easily annoyed or irritable: 0 = Not at all Feeling afraid as if something awful might happen: 0 = Not at all Total PATRICE-7 score (0-4 normal; 5-9 mild; 10-14 moderate; 15-21 severe): 0 Source: Developed by Drs. Terrence Willis, Phoebe Hernández, Puma Kumar and colleagues, with an educational harvinder from [employer]. PATRICE-7 Assessment Billing PATRICE-7 Assessment Tool: PATRICE-7 Assessment 50691 Review of Systems Const Denies chills and Denies fever(s) ENT Denies epistaxis and Denies nasal discharge Card Denies chest pain Resp Denies chest congestion, Denies cough and Denies hemoptysis GI Denies diarrhea and Denies nausea Skin/Breast Denies rash Neuro Reports no additional complaints Psych Reports no additional complaints Endo Reports no additional complaints Physical exam (Primary Care) Vital Signs: Last Vital Signs Pulse 75 04/09/24 08:17 BP 128/80 04/09/24 08:17 Pulse Ox 98 04/09/24 08:17 Oxygen Delivery Method Room Air 04/09/24 08:17 BMI result Body Mass Index 33.3 Tobacco/Smoking Status: Tobacco use Status Tobacco use date assessed 04/09/24 04/09/24 08:22 Patient Tobacco Use Status Never used Tobacco 04/09/24 08:22 e-Cigarette/Vaping Use Never Used 04/09/24 08:22 PHQ-9: PHQ-9 Score PHQ-9: Total score 1 04/09/24 08:33 Depression Screening Interpretation: Negative Thrive Assessment: Date of Thrive Assessment Date Thrive assessed 04/09/24 04/09/24 08:22 Currently or been in a relationship where the following occur: No concerns reported Const General: cooperative, comfortable and no acute distress Orientation/consciousness: patient oriented x3 HENMT Head: Yes normocephalic Eyes General: appearance normal, both eyes and all related structures Neck Neck: Yes supple Resp Effort & Inspection: normal respiratory effort, no cough and no stridor Cardio Rhythm: regular rhythm Heart sounds: S1 normal heart sound present and S2 normal heart sound present Skin General skin exam: turgor normal Neuro General: patient oriented x3, tone normal and moves all extremities Extrem Right lower extremity: no edema Left lower extremity: no edema Coding Level of Care Code Est Pt Level 3 (15808) Complex EM visit Add On G2211 Diagnoses Lipid disorder E78.9 Class 1 obesity due to excess calories with serious comorbidity and body mass index (BMI) of 32.0 to 32.9 in adult E66.09; Z68.32 Body mass index: BMI 32.0-32.9 Obesity classification: adult class 1 (BMI 30 - 34.9) Serious obesity comorbidity presence: with serious comorbidity Impaired fasting blood sugar R73.01 Additional Codes PATRICE-7 Assessment Billing - PATRICE-7 Assessment Tool: PATRICE-7 Assessment 34302 ([id number]) PHQ-9 - 49170 - PHQ-9 Billing: Yes ([id number]) Assessment & Plan Assessment & Plan (1) Lipid disorder: Code(s): E78.9 - Disorder of lipoprotein metabolism, unspecified Category: Medical (2) Obesity due to excess calories: Code(s): E66.09 - Other obesity due to excess calories Category: Medical Qualifiers: Body mass index: BMI 32.0-32.9 Obesity classification: adult class 1 (BMI 30 - 34.9) Serious obesity comorbidity presence: with serious comorbidity Qualified Code(s): E66.09 - Other obesity due to excess calories; Z68.32 - Body mass index [BMI] 32.0-32.9, adult (3) Impaired fasting blood sugar: Code(s): R73.01 - Impaired fasting glucose Category: Medical Plan Patient is a 69-year-old female came in today for her regular follow-up appointment Blood pressure is well-controlled today She is taking atorvastatin 40 mg for lipid control Due for labs, patient is fasting and have it done today Still struggling with weight, trying to lose it by exercising and dieting She offers no other complaints today Follow-up six-month Orders: Orders Complete Blood Count Auto Diff Today E66.09 - Other obesity due to excess calories, E78.9 - Disorder of lipoprotein metabolism, unspecified, R73.01 - Impaired fasting glucose, Z68.32 - Body mass index [BMI] 32.0-32.9, adult Comprehensive Toney. Panel Fast Today E66.09 - Other obesity due to excess calories, E78.9 - Disorder of lipoprotein metabolism, unspecified, R73.01 - Impaired fasting glucose, Z68.32 - Body mass index [BMI] 32.0-32.9, adult Lipid Panel Today E66.09 - Other obesity due to excess calories, E78.9 - Disorder of lipoprotein metabolism, unspecified, R73.01 - Impaired fasting glucose, Z68.32 - Body mass index [BMI] 32.0-32.9, adult Hemoglobin A1c Today E66.09 - Other obesity due to excess calories, E78.9 - Disorder of lipoprotein metabolism, unspecified, R73.01 - Impaired fasting glucose, Z68.32 - Body mass index [BMI] 32.0-32.9, adult
== END 2024-04-09 10:32 | disposition home or self-care (01) ==
PROVIDERS: PCP Internal Medicine; Visit Provider Internal Medicine
DX: E78.9 Disorder of lipoprotein metabolism, unspecified (principal); E66.09 Other obesity due to excess calories; Z68.32 Body mass index [BMI] 32.0-32.9, adult; R73.01 Impaired fasting glucose

== ENCOUNTER 2024-04-09 08:09 | Outpatient (REF) | payer MEDICARE, SELFPAY ==
[2024-04-09 10:07] LABS: MANUAL DIFF FLAG NO
[2024-04-09 10:17] LABS: Basophils Absolute Auto 0.1 X10*3/uL (0.0-0.2); Basophils Percent Auto 1.5 % (0-2); Eosinophils Absolute Auto 0.3 X10*3/uL (0.0-0.4); Eosinophils Percent Auto 3.7 % (0-4); Hematocrit 40.3 % (37.0-47.0); Hemoglobin 13.3 g/dl (12.0-16.0); Imm Gran Abs Auto 0.02 X10*3/uL (0.00-0.03); Imm Gran Pct Auto 0.3 % (0.0-0.4); Lymphocytes Absolute Auto 2.6 X10*3/uL (1.2-4.9); Lymphocytes Percent Auto 37.6 % (20-40); Mean Corpuscular Hemoglobin 30.9 pg (27.0-33.0); Mean Corpuscular Volume 93.7 fL (80.0-98.0); Monocytes Absolute Auto 0.6 X10*3/uL (0.1-1.2); Neutrophils Absolute Auto 3.3 x10*3/uL (2.0-8.3); Neutrophils Percent Auto 47.9 % (45-73); Platelet Count 305 X10*3/uL (160-400); Red Cell Distribution Width 13.2 % (11.0-16.0); White Blood Count 6.8 X10*3/uL (4.8-10.8)
[2024-04-09 10:24] LABS: Estimated Average Glucose 117 mg/dL; Hemoglobin A1C 134.0489 umol/L; Hemoglobin A1c % 5.7 % (<6.0); Total Hemoglobin (HGBA1C) 3489.4428 umol/L
[2024-04-09 11:01] LABS: Alanine Aminotransferase 26 U/L (0-31); Albumin Level 4.2 g/dL (3.5-5.0); Alkaline Phosphatase 62 U/L (39-117); Anion Gap 9 (12-20); Aspartate Amino Transferase 25 U/L (5-31); Bilirubin Total 1.1 mg/dL (0.0-1.0); Blood Urea Nitrogen 18 mg/dL (9-16); Calcium 8.9 mg/dL (8.4-10.2); Carbon Dioxide 27 mmol/L (22-29); Chloride 109 mmol/L (96-108); Cholesterol 175 mg/dL (<200); Estimated Glomerular Filt Rate > 60; Glucose Fasting 96 mg/dL (60-99); HDL Cholesterol 49 mg/dL (>40); LDL Cholesterol Calculated 108 mg/dL (<100); Potassium 4.1 mmol/L (3.3-5.1); Sodium 141 mmol/L (135-145); Total Protein 7.1 g/dL (6.5-8.0); Triglycerides 93 mg/dL (<150)
== END 2024-04-09 08:10 | disposition home or self-care (01) ==
LOC: HO.HMGCLDS 08:09
PROVIDERS: PCP Internal Medicine; Visit Provider Internal Medicine
DX: E78.9 Disorder of lipoprotein metabolism, unspecified (principal); E66.09 Other obesity due to excess calories; Z68.32 Body mass index [BMI] 32.0-32.9, adult; R73.01 Impaired fasting glucose
CPT/HCPCS: 36415; 80053; 80061; 83036; 85025; 96127; 99212

== ENCOUNTER 2024-10-25 11:54 | Outpatient (AMB) | payer MEDICARE, SELFPAY ==
--- NOTE | 2024-10-25 11:44 | A.OFFVIS_ITS ---
Intake Vital Signs 10/25/24 12:03 Height 5 ft 4 in Weight 193 lb BMI 33.1 BP 132/70 Blood Pressure Location Lt brachial Position Sitting Pulse 84 Pulse Source Pulse Oximeter Temp 98.6 F Temp Source Oral Pulse Oximetry (%) 95 Oxygen Delivery Method Room Air Intake Visit Reasons: AWV G0439 Allergies nystatin Allergy (Severe, Verified 04/09/24 08:20) rash Medication List - Last Reconciled 10/25/24 by Maisha Delcid MD atorvastatin 40 mg PO DAILY 90 days HPI AWV G0439 HPI Details History - The patient is a 69-year-old female pr esenting for a Medicare wellness visit. - Reports a history of plantar fasciitis on the right foot, beginning in July, with significant pain, particularly in the morning, which improves as the day progresses and worsens with activity. - Has been doing exercises with a ball, but reports persistent pain. Inflammation and pain described as severe during onset now moderate with interventions. - Was advised to avoid excessive walking , ensure proper footwear, and consider taking anti-inflammatory medication as needed. - Denies taking anti-inflammatory medica tion but has been encouraged to consider this to manage inflammation. - Discussed labs indicating impaired fas ting glucose levels, identified as prediabetes. Was unaware of this diagnosis and discussed weight loss as a primary factor to mitigate risks. Medical History: - Prediabetes - Plantar Fasciitis - Dyslipidemia (taking atorvastatin) Medications: - Atorvastatin 40 mg for dyslipidemia Social History: - Exercises with limitations due to plan tar fasciitis. - Utilizes proper footwear (New Balance Skechers, plantar fasciitis arch supports), advised to consider HOKA shoes for walking. Family History: - No family history of colon cancer Diagnostic Results: - Labs: Blood tests indicating prediabet es with impaired fasting glucose; need for repeat labs noted. Problem List - Plantar Fasciitis - Prediabetes - Dyslipidemia Patient Instructions - Wear proper shoes to prevent plantar f asciitis flare-ups, especially while walking. - Consider taking anti-inflammatory medi cation briefly as needed for foot pain. - Plan to lose weight to manage prediabe brandi. - Schedule and complete pending lab test s. - Discuss necessary vaccinations (tetanu s, pneumonia, shingles) with a pha rmacist. - Follow up with Cologuard testing as di scussed. Review of Systems - General: No fever no chills - Neurological: No headaches no dizziness - Ear nose throat: No sore throat no hearing difficulty no ear pain - Cardiovascular: No syncope, no chest pain, no palpitations - Gastrointestinal: No nausea vomiting or diarrhea - Endocrine: No polyuria polydipsia no heat intolerance - Genitourinary: No dysuria , no blood in urine Physical Exam General: No acute distress HEENT: No acute findings Neck: Supple Respiratory system: Able to talk in full sentences, no audible wheeze Cardiovascular: S1-S2 regular in rate and rhythm Gastrointestinal: Soft nontender bowel sounds present Extremities: No new findings, knees are okay, no swelling in ankles TOBACCO FLAVORER: Alert awake oriented x3 motor sensory intact Skin: Normal turgor HPI Comments History of Present Illness Details AWV Medical/social history reviewed Past medical history reviewed [place] of care / care team list updated Surgical/ hospitalization history reviewed Current medications including OTC and supplements reviewed Family history reviewed Tobacco controlled form updated Alcohol use form updated Illicit drug use in social history reviewed Current diagnosis of depression ?screening updated Appropriate PHQ 2/PHQ-9 completed . Vital signs reviewed Alcohol tobacco drug use reviewed and discussed . MMSE completed . ? Fall risk: ?Assessed Fall history: ?None Have you had any falls with injury in the past year?? No Have you had 2 or more falls in the past year?? No Fall risk assessment completed Home safety discussed with the patient Functional ability assessed and discussed and documented Activities of daily living reviewed and appropriate actions taken . HRA filled out by the patient and reviewed by provider and scanned . Appropriate written screening schedule established . Any health advise needed provided . Advance care planning discussed with the patient , necessary paperwork filled Examination IPPE/AWE: Balance intact Romberg intact Tandem walk Failed walk-in turn intact rise from sit to stand intact . ?Hearing ?whisper test pass . Medication list reviewed, patient is stable on medications All other providers patient is seeing discussed and noted . [facility] Medical History Dyspnea on exertion Thyroid nodule History of breast cancer Family History Father No problems noted. Mother Breast cancer Sister No problems noted. Son No problems noted. Son No problems noted. Sister Ford's palsy Brother Poor circulation Brother No problems noted. Brother No problems noted. Brother No problems noted. Brother No problems noted. Brother No problems noted. Sister No problems noted. Sister No problems noted. Sister No problems noted. Social History Housing: House Patient Tobacco Use Status: Never used Tobacco e-Cigarette/Vaping Use: Never Used Second Hand Smoke Exposure: No service: No Current occupational status: retired Cognitive needs: No Hearing needs: No Vision needs: No Questionnaire Medicare Wellness Checkup [age] What gender do you identify with?: female During the past 4 weeks, how much have you been bothered by emotional problems such as feeling anxious, depressed, irritable, sad or downhearted, and blue?: not at all During the past 4 weeks, has your physical & emotional health limited your social activities with family, friends, neighbors, or groups?: not at all During the past 4 weeks, how much bodily pain have you generally had?: mild pain During the past 4 weeks, was someone available to help you if you needed & wanted help?: yes, as much as I wanted During the past 4 weeks, what was the hardest physical activity you could do for at least 2 minutes?: heavy Can you get to places out of walking distance without help? (For eg., can you travel alone on buses, taxis or drive your car?): Yes Can you go shopping for groceries or clothes without someone's help?: Yes Can you prepare your own meals?: Yes Can you do your housework without help?: Yes Because of any health problems, do you need the help of another person with your personal care needs such as eating, bathing, dressing or getting around the house?: No Can you handle your own money without help?: Yes During the past 4 weeks, how would you rate your health in general?: excellent During the past 4 weeks how have things been going for you?: pretty well Are you having difficulties driving your car?: no Do you always fasten your seat belt when you are in a car?: yes, usually During past 4 weeks, have you been bothered by the following: never: Sexual problems?, Trouble eating well?, Teeth or denture problems? and Problems using the telephone? and seldom: Falling or dizzy when standing up and Tiredness or fatigue? Have you fallen 2 or more times in the past year?: No Are you afraid of falling?: No Are you a smoker?: no During the past 4 weeks, how many drinks of wine, beer, or other alcoholic beverages did you have?: 1 drink or less per week Do you exercise for about 20 minutes 3 or more times a week?: yes, most of the time Have you been given information to help with the following?: no: Hazards in your house that might hurt you? and no: Keeping track of your medications? How often do you have trouble taking medicines the way you have been told to take them?: I always take medicine as prescribed How confident are you that you can control & manage most of your health problems?: very confident What is your race?: White Mini Mental State Exam (MMSE) Orientation What is the (year) (season) (date) (day) (month)?: year, season, date, day and month Where are we (state) (county) (town or city) (hospital) (floor)?: state, county, town or city, hospital/clinic and floor Score Score: 10 Activity of Daily Living Bathing - sponge bath, tub bath or shower: receives no assistance (gets in/out by self, if usual bathing means Dressing - getting clothes from closets & drawers, including inner/outer garments & fasteners.: gets clothes & gets completely dressed without help Toileting - going to the 'toilet room' for urine/bowel elimination & cleaning self/arranging clothes: goes to toilet room, cleans self, arranges clothes without help Transfer: moves in & out of bed and chair without help (may use support object) Continence: controls urination/bowel movements completely by self Feeding: feeds self without help Total Score: 0 Information obtained from: patient Using telephone: independent Traveling: independent Shopping: independent Preparing meals: independent Housework: independent Taking medicine: independent Managing money: independent PHQ-9 Over the last 2 weeks, how often have you been bothered by any of the following problems? 1. Little interest or pleasure in doing things: not at all 2. Feeling down, depressed, or hopeless: not at all 3. Trouble falling or staying asleep, or sleeping too much: several days 4. Feeling tired or having little energy: not at all 5. Poor appetite or overeating: not at all 6. Feeling bad about yourself - or that you are a failure or have let yourself or your family down: not at all 7. Trouble concentrating on things, such as reading the newspaper or watching television: not at all 8. Moving or speaking so slowly that other people could have noticed. Or the opposite - being so fidgety or restless that you have been moving around a lot more than usual: not at all 9. Thoughts that you would be better off or of hurting yourself in some way: not at all Total score: 1 Depression Screening Interpretation: Negative Depression Screening Done: Yes 21594 - PHQ-9 Billing: Yes Source: Developed by Drs. Terrence Willis, Phoebe Hernández, Puma Kumar and colleagues, with an educational harvinder from [employer]. Physical Exam Vital Signs: Last Vital Signs Temp 98.6 F 10/25/24 12:03 Pulse 84 10/25/24 12:03 BP 132/70 10/25/24 12:03 Pulse Ox 95 10/25/24 12:03 Oxygen Delivery Method Room Air 10/25/24 12:03 BMI result Body Mass Index 33.1 Assessment & Plan Assessment & Plan (1) Medicare annual wellness visit, subsequent: Code(s): Z00.00 - Encounter for general adult medical examination without abnormal findings (2) Impaired fasting blood sugar: Code(s): R73.01 - Impaired fasting glucose (3) Obesity due to excess calories: Code(s): E66.09 - Other obesity due to excess calories Qualifiers: Body mass index: BMI 32.0-32.9 Obesity classification: adult class 1 (BMI 30 - 34.9) Serious obesity comorbidity presence: with serious comorbidity Qualified Code(s): E66.09 - Other obesity due to excess calories; Z68.32 - Body mass index [BMI] 32.0-32.9, adult (4) Lipid disorder: Code(s): E78.9 - Disorder of lipoprotein metabolism, unspecified (5) Plantar fasciitis, right: Code(s): M72.2 - Plantar fascial fibromatosis Plan History - The patient is a 69-year-old female presenting for a Medicare wellness visit. - Reports a history of plantar fasciitis on the right foot, beginning in July, with significant pain, particularly in the morning, which improves as the day progresses and worsens with activity. - Has been doing exercises with a ball, but reports persistent pain. Inflammation and pain described as severe during onset now moderate with interventions. - Was advised to avoid excessive walking, ensure proper footwear, and consider taking anti-inflammatory medication as needed. - Denies taking anti-inflammatory medication but has been encouraged to consider this to manage inflammation. - Discussed labs indicating impaired fasting glucose levels, identified as prediabetes. Was unaware of this diagnosis and discussed weight loss as a primary factor to mitigate risks. Medical History: - Prediabetes - Plantar Fasciitis - Dyslipidemia (taking atorvastatin) Medications: - Atorvastatin 40 mg for dyslipidemia Social History: - Exercises with limitations due to plantar fasciitis. - Utilizes proper footwear (New Balance Skechers, plantar fasciitis arch supports), advised to consider HOKA shoes for walking. Family History: - No family history of colon cancer Diagnostic Results: - Labs: Blood tests indicating prediabetes with impaired fasting glucose; need for repeat labs noted. Problem List - Plantar Fasciitis - Prediabetes - Dyslipidemia Patient Instructions - Wear proper shoes to prevent plantar fasciitis flare-ups, especially while walking. - Consider taking anti-inflammatory medication briefly as needed for foot pain. - Plan to lose weight to manage prediabetes. - Schedule and complete pending lab tests. - Discuss necessary vaccinations (tetanus, pneumonia, shingles) with a pharmacist. - Follow up with Cologuard testing as discussed. Follow-up 1 year Medicare wellness visit labs to be done every 6 months, call office in six-month for lab order Orders: Orders Comprehensive [place]. Panel Fast Today E66.09 - Other obesity due to excess calories, E78.9 - Disorder of lipoprotein metabolism, unspecified, R73.01 - Impaired fasting glucose, Z00.00 - Encounter for general adult medical examination without abnormal findings, Z68.32 - Body mass index [BMI] 32.0-32.9, adult Lipid Panel Today E66.09 - Other obesity due to excess calories, E78.9 - Disorder of lipoprotein metabolism, unspecified, R73.01 - Impaired fasting glucose, Z00.00 - Encounter for general adult medical examination without abnormal findings, Z68.32 - Body mass index [BMI] 32.0-32.9, adult TSH reflex Free T4 Today E66.09 - Other obesity due to excess calories, E78.9 - Disorder of lipoprotein metabolism, unspecified, R73.01 - Impaired fasting glucose, Z00.00 - Encounter for general adult medical examination without ab normal findings, Z68.32 - Body mass index [BMI] 32.0-32.9, adult Complete Blood Count Auto Diff Today E66.09 - Other obesity due to excess calories, E78.9 - Disorder of lipoprotein metabolism, unspecified, R73.01 - Impaired fasting glucose, Z00.00 - Encounter for general adult medical examination without abnormal findings, Z68.32 - Body mass index [BMI] 32.0-32.9, adult Vitamin D 25-OH (D2 and D3) Today E66.09 - Other obesity due to excess calories, E78.9 - Disorder of lipoprotein metabolism, unspecified, R73.01 - Impaired fasting glucose, Z00.00 - Encounter for general adult medical examination without abnormal findings, Z68.32 - Body mass index [BMI] 32.0-32.9, adult Hemoglobin A1c Today E66.09 - Other obesity due to excess calories, E78.9 - Disorder of lipoprotein metabolism, unspecified, R73.01 - Impaired fasting glucose, Z00.00 - Encounter for general adult medical examination without abnormal findings, Z68.32 - Body mass index [BMI] 32.0-32.9, adult Referrals Cologuard Test Z12.11 - Encounter for screening for malignant neoplasm of colon, Z12.12 - Encounter for screening for malignant neoplasm of rectum Quality Reporting (2019) Depression/Bipolar (159/160/161/177) PHQ-9: Total score: 1 Coding Level of Care Code Medicare Subsequent (G0439) Est Pt Level 3 (74747) Diagnoses Medicare annual wellness visit, subsequent Z00.00 Impaired fasting blood sugar R73.01 Class 1 obesity due to excess calories with serious comorbidity and body mass index (BMI) of 32.0 to 32.9 in adult E66.09; Z68.32 Body mass index: BMI 32.0-32.9 Obesity classification: adult class 1 (BMI 30 - 34.9) Serious obesity comorbidity presence: with serious comorbidity Lipid disorder E78.9 Plantar fasciitis, right M72.2 CPT Codes Advance Care Planning - Time spent: 1-15 minutes, not on file ([id number]) Additional Codes PHQ-9 - 94589 - PHQ-9 Billing: Yes ([id number]) Advance Care Planning Forms completed: Health Care Proxy Time spent: 1-15 minutes, not on file
[2024-10-25 12:03] VITALS: BP 132/70; PULSE 84; TEMP 37; O2SAT 95; BMI 33.1
== END 2024-10-25 12:27 | disposition home or self-care (01) ==
LOC: HO.HMCC 11:54
PROVIDERS: PCP Internal Medicine; Visit Provider Internal Medicine
DX: Z00.00 Encounter for general adult medical examination without abnormal findings (principal); R73.01 Impaired fasting glucose; M72.2 Plantar fascial fibromatosis; E66.09 Other obesity due to excess calories; Z68.32 Body mass index [BMI] 32.0-32.9, adult; E78.9 Disorder of lipoprotein metabolism, unspecified

== ENCOUNTER → 2024-10-25 11:54 | Outpatient (BNVA) | payer MEDICARE, SELFPAY | PROVIDERS: PCP Internal Medicine; Visit Provider Internal Medicine | DX: Z00.00 Encounter for general adult medical examination without abnormal findings (principal); R73.01 Impaired fasting glucose; E66.09 Other obesity due to excess calories; Z68.32 Body mass index [BMI] 32.0-32.9, adult; E78.9 Disorder of lipoprotein metabolism, unspecified; M72.2 Plantar fascial fibromatosis; Z71.3 Dietary counseling and surveillance | CPT/HCPCS: 96127; 99212 ==

== ENCOUNTER 2024-11-12 08:15 | Outpatient (REF) | payer MEDICARE, SELFPAY ==
--- OUTSIDE RECORDS SUMMARY | 2024-11-12 08:22 | XMS_ITS | Patient Health Record ---
Author Organization [facility] Address [address] [place] [id number] Care Team Providers Care Supervisor Plastics Name Role Phone Terrence Vazquez Unavailable [phone] Reason For Referral No Information Plan Of Treatment No Information
[2024-11-12 10:07] LABS: MANUAL DIFF FLAG NO
[2024-11-12 10:09] LABS: Basophils Absolute Auto 0.1 X10*3/uL (0.0-0.2); Basophils Percent Auto 1.2 % (0-2); Eosinophils Absolute Auto 0.2 X10*3/uL (0.0-0.4); Eosinophils Percent Auto 3.3 % (0-4); Hematocrit 38.2 % (37.0-47.0); Hemoglobin 12.7 g/dl (12.0-16.0); Imm Gran Abs Auto 0.03 X10*3/uL (0.00-0.03); Imm Gran Pct Auto 0.4 % (0.0-0.4); Lymphocytes Absolute Auto 2.6 X10*3/uL (1.2-4.9); Lymphocytes Percent Auto 35.2 % (20-40); Mean Corpuscular HGB Conc 33.2 g/dl (31.0-35.0); Mean Corpuscular Hemoglobin 30.8 pg (27.0-33.0); Mean Corpuscular Volume 92.5 fL (80.0-98.0); Mean Platelet Volume 9.9 fL (9.4-12.3); Monocytes Absolute Auto 0.6 X10*3/uL (0.1-1.2); Monocytes Percent Auto 8.7 % (2-11); Neutrophils Absolute Auto 3.8 x10*3/uL (2.0-8.3); Neutrophils Percent Auto 51.2 % (45-73); Platelet Count 321 X10*3/uL (160-400); Red Blood Count 4.13 X10*6/uL (4.20-5.50); Red Cell Distribution Width 13.2 % (11.0-16.0); White Blood Count 7.4 X10*3/uL (4.8-10.8)
[2024-11-12 10:15] LABS: Estimated Average Glucose 114 mg/dL; Hemoglobin A1c % 5.6 % (<6.0)
[2024-11-12 10:40] LABS: Alanine Aminotransferase 27 U/L (0-31); Albumin Level 4.3 g/dL (3.5-5.0); Alkaline Phosphatase 58 U/L (39-117); Anion Gap 12 (12-20); Aspartate Amino Transferase 31 U/L (5-31); Bilirubin Total 1.3 mg/dL (0.0-1.0); Blood Urea Nitrogen 19 mg/dL (9-16); Calcium 9.6 mg/dL (8.4-10.2); Carbon Dioxide 26 mmol/L (22-29); Chloride 107 mmol/L (96-108); Cholesterol 188 mg/dL (<200); Estimated Glomerular Filt Rate > 60; Glucose Fasting 98 mg/dL (60-99); HDL Cholesterol 49 mg/dL (>40); LDL Cholesterol Calculated 121 mg/dL (<100); Potassium 4.2 mmol/L (3.3-5.1); Sodium 141 mmol/L (135-145); Triglycerides 90 mg/dL (<150)
[2024-11-12 10:41] LABS: TSH reflex Free T4 1.76 uIU/mL (0.32-4.0)
[2024-11-16 15:44] LABS: Vitamin D 25-OH, D2 <4 ng/mL; Vitamin D 25-OH, D3 26 ng/mL; Vitamin D 25-OH, Total 26 ng/mL (30-100)
== END 2024-11-12 08:16 | disposition home or self-care (01) ==
LOC: HO.HMGCLDS 08:15
PROVIDERS: PCP Internal Medicine; Visit Provider Internal Medicine
DX: Z00.00 Encounter for general adult medical examination without abnormal findings (principal); R73.01 Impaired fasting glucose; E66.09 Other obesity due to excess calories; Z68.32 Body mass index [BMI] 32.0-32.9, adult; E78.9 Disorder of lipoprotein metabolism, unspecified
CPT/HCPCS: 36415; 80053; 80061; 82306; 83036; 84443; 85025

== ENCOUNTER 2024-11-21 08:30 | Outpatient (AMB) | payer MEDICARE, SELFPAY ==
--- OUTSIDE RECORDS SUMMARY | 2024-11-21 08:35 | XMS_ITS | Patient Health Record ---
Author Organization [facility] Address [address] [place] [id number] Care Team Providers Care Production Operations Manager Name Role Phone Terrence Vazquez Unavailable [phone] Reason For Referral No Information Plan Of Treatment No Information
--- NOTE | 2024-11-21 09:26 | A.OFFPC_ITS ---
Intake Visit Reasons: cologuard results Allergies nystatin Allergy (Severe, Verified 04/09/24 08:20) rash Medication List - Last Reconciled 11/21/24 by Maisha Delcid MD atorvastatin 40 mg PO DAILY 90 days Tobacco use date assessed: 04/09/24 Dental Screening Dental Screen Date: 04/09/24 HPI cologuard results HPI Details History - The patient is a 69-year-old female pr esenting with a positive result on a Cologuard test. - The Cologuard test was conducted as a routine screening measure. - it requires further investigation thro ugh a colonoscopy to confirm or rule out the presence of polyps or other conditions. - The patient mentioned experiencing ten derness after consuming red hot pepper, which could cause minor irritation or the presence of blood in the stool Patient Instructions - The patient agreed to proceed with a c olonoscopy for further evaluation. - An appointment with a gastroenterologi st, Dr. Vazquez, will be booked. Review of Systems - General: No fever no chills - Neurological: No headaches no dizziness - Ear nose throat: No sore throat no hearing difficulty no ear pain - Cardiovascular: No syncope, no chest pain, no palpitations - Gastrointestinal: No nausea vomiting or diarrhea PFSH Medical History Dyspnea on exertion Thyroid nodule History of breast cancer Family History Father No problems noted. Mother Breast cancer Sister No problems noted. Son No problems noted. Son No problems noted. Sister Ford's palsy Brother Poor circulation Brother No problems noted. Brother No problems noted. Brother No problems noted. Brother No problems noted. Brother No problems noted. Sister No problems noted. Sister No problems noted. Sister No problems noted. Social History Housing: House Patient Tobacco Use Status: Never used Tobacco e-Cigarette/Vaping Use: Never Used Second Hand Smoke Exposure: No service: No Current occupational status: retired Cognitive needs: No Hearing needs: No Vision needs: No Questionnaire Thrive Questionnaire Date Thrive assessed: 10/25/24 PATRICE-7 AMB Questionnaire PATRICE-7 Date PATRICE - 7 assessed: 04/09/24 Source: Developed by Drs. Terrence Willis, Phoebe Hernández, Puma Kumar and colleagues, with an educational harvinder from [employer]. Physical exam (Primary Care) Tobacco/Smoking Status: Tobacco use Status Tobacco use date assessed 04/09/24 11/21/24 09:26 Patient Tobacco Use Status Never used Tobacco 11/21/24 09:26 e-Cigarette/Vaping Use Never Used 11/21/24 09:26 Thrive Assessment: Date of Thrive Assessment Date Thrive assessed 10/25/24 11/21/24 09:26 Telehealth Telehealth Telehealth Platform: [employer] Location of provider rendering services: practice address Location of patient: address on file Patient Identification confirmed using: Name, : Yes Telehealth method: voice only Patient verbally consented to treatment: Yes Patient verbally consented to billing insurance company: Yes Patient informed of any privacy concerns related to visit: Yes Minutes spent on Phone/Video with Pt.: 13 Coding Level of Care Code Tele Est Pt Level 3 (40840) Diagnoses Positive colorectal cancer screening using Cologuard test R19.5 Assessment & Plan Assessment & Plan (1) Positive colorectal cancer screening using Cologuard test: Code(s): R19.5 - Other fecal abnormalities Category: Medical Plan History - The patient is a 69-year-old female presenting with a positive result on a Cologuard test. - The Cologuard test was conducted as a routine screening measure. - it requires further investigation through a colonoscopy to confirm or rule out the presence of polyps or other conditions. - The patient mentioned experiencing tenderness after consuming red hot pepper, which could cause minor irritation or the presence of blood in the stool Patient Instructions - The patient agreed to proceed with a colonoscopy for further evaluation. - An appointment with a forging press setter up, Dr. Vazquez, will be booked. Orders: Referrals Gastroenterology Referral R19.5 - Other fecal abnormalities
== END 2024-11-21 09:41 | disposition home or self-care (01) ==
LOC: HO.HMCC 08:30
PROVIDERS: PCP Internal Medicine; Visit Provider Internal Medicine
DX: R19.5 Other fecal abnormalities (principal)

== ENCOUNTER 2024-12-27 09:27 | Day surgery (SDC) | payer MEDICARE, SELFPAY ==
--- OUTSIDE RECORDS SUMMARY | 2024-11-27 09:00 | XMS_ITS ---
Author Organization [facility] Address [address] [place] [address] Care Team Providers Care Java [id number] Software Engineer Name Role Phone Bhavin MCCLURE, [facility] Primary [facility] Provider Terrence Ingram Unavailable [phone] Allergies No Known Allergies REASON FOR VISIT Patient presents today for a positive cologuard Medications Medication SIG (Take, Route, Frequency, Duration) Notes Start Date End Date Status Atorvastatin Calcium 40 MG TAKE 1 TABLET BY MOUTH DAILY Oral for 90 Days Active Hair Skin & Nails - as directed Orally Active One A Day Women 50 Plus - as directed Orally Active Social History Tobacco Use: Social History Observation Description Date Details (start date - stop date) Never Smoker NA - NA Tobacco Control (Standard) Question Answer Notes Tobacco use: Nonsmoker AUDIT-C (Standard) Question Answer Notes Did you have a drink contain ing alcohol in the past year? Yes How often did you have a dri nk containing alcohol in the past year? 2 to 4 times a month (2 points) How many drinks did you have on a typical day when you were drinking in the past year? 1 or 2 drinks (0 point) How often did you have six o r more drinks on one occasion in the past year? Never (0 point) Points 2 Interpretation Negative Vital Signs Temperature 98.5 degrees Fahrenheit 11/28/19 25 Blood pressure systolic 001 mm Hg 11/28/19 25 Blood pressure diastolic 01 mm Hg 025 Height 63 in 11/27/2024 Weight 192.4 lbs 11/27/2024 BMI 34.08 kg/m2 11/27/2024 Procedures Procedure Date Ordered Date Performed Result Body Sit e COLONOSCOPY 11/27/2024 N/A Encounters Encounter Location Date Provider Diagnosis [facility] [address] [place] [address] 11/27/2024 Terrence Vazquez Positive colorectal cancer screening using Cologuard test R19.5 Assessments Encounter Date Diagnosis (ICD Code) Assessment Notes Treatment Notes Treatment Clinical Notes Section Notes 11/27/2024 Positive colorectal cancer screening using Cologuard test (ICD-10 - R19.5) Overall, Penny appears quite well. Given her age, excellent clinical appearance, her last colonoscopy being about 10 years ago, and the recent positive Cologuard test, I advised her that she definitely needs a colonoscopy for further evaluation. We did review the rationale for this in regard to colorectal cancer prevention and/or early detection. I advised her that we need to rule out polyps or any other lesions in the colon. Full consent has been obtained for this, including risks of bleeding and perforation. The procedure will be done with monitored anesthesia care. Penny was very comfortable with this plan. Thank you again for allowing me to participate in Penny's care. I shall continue to keep you advised of her progress. Plan Of Treatment Pending Test Test Name Order Date COLONOSCOPY 11/27/2024 Next Appt Details Provider Name:Terrence Vazquez , 12/27/2024 03:00:00 PM, [address] [place] [address] , [place], [place], [id number], Progress Notes * ABDELRAHMAN ZAMBRANOOB:1955 (69 yo F)Acc No.[id number]:11/27/2024 Progress Notes Patient: PENNY RAZO Provider: Dilia Vazquez MD :1955 A ge:69 Y S ex:Female Date:11/27/2024 Address:[address] [place] [address] [place], [id number] Pcp:Maisha Delcid MD Subjective: * Chief Complaints: * 1 . Patient presents today for a positive cologuard. * HPI: i ncontinence: I saw Penny in consultation today in regard to a recent positive Cologuard test. I last saw Penny in 2004. I do not have the records but she describes a negative screening colonoscopy with me at that time. I have not seen her since then but she describes another negative screening colonoscopy about 10 years ago with a different provider. She presently feels very well, but as you know she turned in a recent Cologuard test that came back as positive. She denies any particular change in bowel habits, hematochezia, nor melena. She describes a nephew having a recent diagnosis of colon cancer but no other family members with that issue. She enjoys a good appetite and denies any significant heartburn or dysphagia. She denies any abdominal pain, jaundice, nor unintentional weight loss. Laboratories from last month revealed a normal CBC, normal chemistries and renal function, and normal liver profile. * Medical History: B reast cancer on the right 2009-lumpectomy and XRT- , Hyperlipidemia, Denies AK,DM,CVA,Lung disease,renal disease, Negative screening colonoscopy in 2004 with me and in 2014 with a different provider.. * Surgical History: B reast cancer-as above . * Family History: F ather: , diagnosed with Heart disease. M other: . No family history liver cancer. Nephew has colon cancer. * Social History: T obacco Use: T obacco Control (Standard) T obacco use: N onsmoker. M iscellaneous: M arital status: . Occupation: retired. D rug/Alcohol: A BERT-C (Standard) D id you have a drink containing alcohol in the past year? Y es,?How often did you have a drink containing alcohol in the past year? 2 to 4 times a month (2 points), H ow many drinks did you have on a typical day when you were drinking in the past year? 1 or 2 drinks (0 point), H ow often did you have six or more drinks on one occasion in the past year? N ever (0 point), P oints 2 , I nterpretation N egative. * Medications: T aking One A Day Women 50 Plus - Tablet Chewable as directed Orally , Taking Hair Skin & Nails - Tablet as directed Orally , Taking Atorvastatin Calcium 40 MG Tablet TAKE 1 TABLET BY MOUTH DAILY Oral , Medication List reviewed and reconciled with the patient * Allergies: N .K.D.A. Objective: * Vitals: W t: 192.4 lbs, Ht: 63 in, BMI: 34.08 Index, BP: 001/01 mm Hg, Temp: 98.5, Ht-cm: 160.02, Wt-k.27. Assessment: * Assessment: 1. P ositive colorectal cancer screening using Cologuard test - R19.5 (Primary) ? Overall, Penny appears quite well. Given her age, excellent clinical appearance, her last colonoscopy being about 10 years ago, and the recent positive Cologuard test, I advised her that she definitely needs a colonoscopy for further evaluation. We did review the rationale for this in regard to colorectal cancer prevention and/or early detection. I advised her that we need to rule out polyps or any other lesions in the colon. Full consent has been obtained for this, including risks of bleeding and perforation. The procedure will be done with monitored anesthesia care. Penny was very comfortable with this plan. Thank you again for allowing me to participate in Penny's care. I shall continue to keep you advised of her progress. Plan: * Treatment: * Procedure Codes: 4 [id number] DIAGNOSTIC COLONOSCOPY * Preventive Medicine: Screenings: F all Risk Screening F all Risk Assessment: N o falls in the past year, S creening: N o falls in the past year, A ssessment: N ot performed, no reason specified, P cliff of Care: N ot documented, no reason specified. Counseling: C are goal follow-up plan: A ge Normal BMI Follow-up D ietary management education, guidance, and counseling, B AK management provided Y es. Urinary Incontinence: U rinary Incontinence A ssessment: A bsent, P cliff of care documented: N o, reason not specified. * * The named appointment provid er may or may not be the originator of this progress note, and it is not deemed complete until electronically signed by the appointment provider. Sign off status: Pending * Provider: Dilia Vazquez MD Date: 11/27/2024 Generated for Rojelio myrick/[place]/Catalinaitting on: 11/28/2024 07:52 AM EDT
[2024-12-25 15:07] VITALS: BMI 34.1
--- NOTE | 2024-12-26 08:49 | P.CONAN_ITS ---
Documented by User: Jessie Cason NP 12/26/24 08:49 HPI - Anesthesia Eval Consult details Narrative: 69yo F for Colonoscopy PMFSH Active Problems Active Problems: All Active Problems Positive colorectal cancer screening using Cologuard test (Acute) Plantar fasciitis, right (Acute) Diastolic blood pressure 90 mm Hg or higher (Acute) Medicare annual wellness visit, subsequent (Acute) Palpitations (Acute) Shortness of breath (Acute) Serum calcium elevated (Acute) Impaired fasting blood sugar (Acute) Medicare annual wellness visit, initial (Acute) Obesity due to excess calories (Acute) Elevated blood pressure reading (Acute) Lower back pain (Acute) Lipid disorder (Acute) Dyspnea on exertion (Acute) Thyroid nodule (Acute) Past Medical History Medical History HLD (hyperlipidemia) Dyspnea on exertion Thyroid nodule History of breast cancer Family History Family History Father No problems noted. Mother Breast cancer Sister No problems noted. Son No problems noted. Son No problems noted. Sister Ford's palsy Brother Poor circulation Brother No problems noted. Brother No problems noted. Brother No problems noted. Brother No problems noted. Brother No problems noted. Sister No problems noted. Sister No problems noted. Sister No problems noted. Surgical History Surgical History History of lumpectomy of right breast (2009) Hx of colonoscopy (2014) Social History Social History Housing: House Patient Tobacco Use Status: Never used Tobacco e-Cigarette/Vaping Use: Never Used Second Hand Smoke Exposure: No Use of substances other than those prescribed or required for medical reasons: No Are you DNR?: No Advance Directives: No Advance Directives Information Provided: Yes Patient : No : No Poor oral hygiene: No service: No Current occupational status: retired Cognitive needs: No Hearing needs: No Vision needs: No Meds Allergies Allergy/AdvReac Type Severity Reaction Status Date / Time nystatin Allergy Severe rash Verified 04/09/24 08:20 Home Medications ?Medication ?Instructions ?Recorded ?Confirmed ?Last Taken ?Type Hair, Skin and Nails (biotin) PO 12/25/24 Unknown His tory multivitamin 1 tab PO DAILY 12/25/24 0811/13 Unknown History Exam Height,Weight and Vital Signs: Height 5 ft 3 in Weight 87.203 kg Assessment and Plan Assessment Anesthesia Assessment: Chart Reviewed Documented by User: Sharlene Neely MD 12/27/24 10:28 [facility] Past Medical History Medical History HLD (hyperlipidemia) Dyspnea on exertion Thyroid nodule History of breast cancer Family History Family History Father No problems noted. Mother Breast cancer Sister No problems noted. Son No problems noted. Son No problems noted. Sister Ford's palsy Brother Poor circulation Brother No problems noted. Brother No problems noted. Brother No problems noted. Brother No problems noted. Brother No problems noted. Sister No problems noted. Sister No problems noted. Sister No problems noted. Family history of problems with anesthesia: No Surgical History Surgical History History of lumpectomy of right breast (2009) Hx of colonoscopy (2014) History of Problems with Anesthesia: No Social History Social History Housing: House Patient Tobacco Use Status: Never used Tobacco e-Cigarette/Vaping Use: Never Used Second Hand Smoke Exposure: No Use of substances other than those prescribed or required for medical reasons: No Are you DNR?: No Advance Directives: No Advance Directives Information Provided: Yes Patient : No : No Poor oral hygiene: No service: No Current occupational status: retired Cognitive needs: No Hearing needs: No Vision needs: No Meds Allergies Allergy/AdvReac Type Severity Reaction Status Date / Time nystatin Allergy Severe rash Verified 04/09/24 08:20 Home Medications ?Medication ?Instructions ?Recorded ?Confirmed ?Last Taken ?Type Hair, Skin and Nails (biotin) PO 12/25/24 Unknown His tory multivitamin 1 tab PO DAILY 12/25/24 08/0 11/13 Unknown History Exam Airway Mallampati Class: II TM Dist: >3cm Neck ROM: Limited Heart: rrr Lungs: cta Assessment and Plan Assessment Anesthesia Assessment: Anesthesia Plan Discussed Final Anesthetic Review Family History of Problems with Anesthesia: No History of Problems with Anesthesia: No NPO: Yes ASA Class: III Final Preanesthetic Review: No Changes in Pt Med Stat, Meds/Allgs Chart Reviewed, Consent Obtained/Reviewed and Anes Risks/Benef Reviewed Patient Risk: Intermediate Procedure Risk: Low Anesthetic Plan Anesthetic Plan: MAC: Disposition: Standard PACU
[2024-12-27 10:04] VITALS: BMI 33.3
[2024-12-27 10:05] VITALS: BP 151/71; PULSE 97; RESP 16; TEMP 36.4; O2SAT 97
[2024-12-27] MEDS: Lactated Ringers 1,000 ML 100 ML IVCONT (10:21)
[2024-12-27 11:58] VITALS: BP 121/61; PULSE 91; RESP 16; TEMP 36.6; O2SAT 96
--- NOTE | 2024-12-27 11:58 | P.BOP_ITS ---
Brief Operative Note Date of Service: 12/27/24 Pre-op diagnosis: + Cologuard Post-op diagnosis: other (Diverticulosis, Hemorrhoids) Procedure: Colonoscopy to the cecum and TI Surgeon: Terrence Vazquez MD Was an Business Intelligence Etl Developer used for this Procedure?: No Estimated blood loss (mL): 0 Pathology: none sent Condition: stable Disposition: PACU
[2024-12-27 12:14] VITALS: BP 120/78; PULSE 91; RESP 16; TEMP 36.6; O2SAT 96
--- NOTE | 2024-12-27 12:46 | OP_ITS ---
DATE OF SERVICE: 12/27/2024 SURGEON: Terrence Vazquez MD INDICATIONS: The patient presents for evaluation of positive Cologuard test. Full consent has been obtained from her for this, including risks of bleeding and perforation. PREOPERATIVE DIAGNOSIS: Positive Cologuard test. POSTOPERATIVE DIAGNOSIS: PROCEDURE PERFORMED: Colonoscopy to the cecum and terminal ileum. ESTIMATED BLOOD LOSS: COMPLICATIONS: ANESTHESIA: Medication used, monitored anesthesia care. ASSISTANTS: SPECIMENS: POSTOPERATIVE DIAGNOSES: Positive Cologuard test, diverticulosis, internal and external hemorrhoids. DESCRIPTION OF PROCEDURE: The patient was placed in the left lateral decubitus position. The digital rectal exam revealed external hemorrhoids. The Olympus video pediatric colonoscope was entered into the rectum and advanced to the cecum Once in the cecum, I did identify normal-appearing cecal pouch with appendiceal orifice and a normal-appearing ileocecal valve. The terminal ileum was cannulated and appeared normal. Scope was withdrawn back in the colon. The entire cecum and ileocecal valve appeared normal. The scope was slowly withdrawn assessing all mucosal surfaces carefully. Preparation was excellent. I did not visualize any sign of polyps, colitis, nor angiodysplasia. There was a mild amount of sigmoid diverticulosis. In the rectum, scope was retroflexed visualizing internal hemorrhoids, but no other pathology. The rectal mucosa appeared normal. The scope was straightened and withdrawn from the patient. She tolerated the procedure well and was returned to the recovery area in stable condition. IMPRESSION: 1. Mild diverticulosis. 2. Internal and external hemorrhoids. PLAN: Given today's negative colonoscopy and no significant family history of colon cancer in first-degree relatives. I do not think she would need any further screening colonoscopies. As such, she will see me on a p.r.n. basis. MD FRANCES Munoz/NEGRO / [phone] [id number]
== END 2024-12-27 12:34 | disposition home or self-care (01) ==
PROVIDERS: PCP Internal Medicine; Visit Provider Internal Medicine
PROC: 0DJD8ZZ Inspection of Lower Intestinal Tract, Via Natural or Artificial Opening Endoscopic (ICD-10-PCS; CPT 45378; principal; 2024-12-27 10:40)
DX: R19.5 Other fecal abnormalities (principal); K57.30 Diverticulosis of large intestine without perforation or abscess without bleeding; K64.8 Other hemorrhoids; K64.4 Residual hemorrhoidal skin tags; Z85.3 Personal history of malignant neoplasm of breast; Z92.3 Personal history of irradiation; E78.5 Hyperlipidemia, unspecified; Z79.899 Other long term (current) drug therapy; Z98.890 Other specified postprocedural states
CPT/HCPCS: 45378; J2003; J2704; J3010